=== PATIENT | female | born 2000 | race Caucasian/White ===

== ENCOUNTER 2019-07-10 10:40 | Emergency (ER) | payer BC ==
[~2019-07-10] VITALS: Ht 154.9 cm; Wt 81.2 kg
[2019-07-10 10:46] VITALS: Ht 154.9 cm; Wt 81.2 kg
[2019-07-10 13:46] VITALS: BP 119/65
== END 2019-07-10 13:46 | disposition home or self-care (01) ==
LOC: ED 10:40
DX: A08.4 Viral intestinal infection, unspecified (principal)
CPT/HCPCS: 87804; Q0162